=== PATIENT | male | born 1940 | race Hispanic/Latino ===

== ENCOUNTER 2017-03-24 21:04 | Emergency (ER) | payer MEDICARE ==
[~2017-03-24 21:04] MED LIST: ADRENALIN ONE
--- NOTE | 2017-03-24 21:21 | Emergency Department Report ---
ED CPR HPI - General Stated Complaint: CARDIAC ARREST Time Seen by Provider: 03/24/17 21:15 Source: EMS, old records reviewed Mode of arrival: Stretcher Limitations: Altered Mental Status, Physical Limitation - History of Present Illness Initial Comments: 77-year-old male with a past medical history of COPD, hypertension, diabetes, and history of NV presents to the hospital with cardiopulmonary arrest. Patient resides at [facility]. EMS received cough of respiratory distress. Upon their arrival patient had agonal respirations and cyanosis. Unable to obtain a pulse ox in the field. Patient was intubated with 8.0 ET tube. Patient initially had a sinus rhythm with a rightward axis at a rate of 93 per EMS EKG. Possible RVH. No signs of ST elevation NV on EMS EKG. 2 minutes prior to arrival patient became pulseless and presents to the ED apneic , pulseless, and asystole on the monitor. Accu-Chek reported to be in the 200s. No vasoactive IV medication given prior to arrival. Patient presents with [facility] Hospital ID band and gown Previous medical record review. Patient was recently admitted here February 25 and discharged on March 11 for acute encephalopathy secondary to sepsis, MSSA or tracheal aspirate, right lower lobe aspiration pneumonia, acute hypoxic hypercapnic respiratory failure requiring intubation, elevated troponin secondary to sepsis and renal insufficiency, acute renal insufficiency secondary to ATN/sepsis that resolved prior to discharge. Patient had labs drawn March 23 yesterday showing a glucose of 140, sodium 137 , potassium 4.7, CO2 25, chloride 97, BUN 43, calcium 8.7, creatinine 2.1. Worsening renal function compared to most recent discharge lab work As per alf paperwork patient is full CODE STATUS - Related Data Home Medications Medication Instructions Recorded Confirmed Last Taken Duloxetine HCl [Cymbalta] 60 mg PO DAILY 02/26/17 02/26/17 Unknown Fenofibrate [Tricor] 145 mg PO QDAY 02/26/17 02/26/17 Unknown Levothyroxine Sodium 137 mcg PO QAM 02/26/17 02/26/17 Unknown Lisinopril 20 mg PO DAILY 02/26/17 02/26/17 Unknown Pantoprazole [Protonix TAB] 40 mg PO QDAY 02/26/17 02/26/17 Unknown Pregabalin [Lyrica] 300 mg PO BID 02/26/17 02/26/17 Unknown busPIRone [Buspar] 10 mg PO BID 02/26/17 02/26/17 Unknown Previous Rx's Medication Instructions Recorded Last Taken Type Ipratropium/Albuterol Sulfate 1 ampul IH QIDRT #90 ampul.neb 03/10/17 Unknown Rx [DUONEB *Not for PRN Use*] Metoprolol [Lopressor TAB] 50 mg PO BID #60 tablet 03/10/17 Unknown Rx Prednisone [predniSONE 10 mg 10 mg PO .TAPER #1 tab.ds.pk 03/10/17 Unknown Rx (6-Day Pack, 21 Tabs)] amLODIPine [Norvasc] 10 mg PO QDAY #30 tablet 03/10/17 Unknown Rx hydrALAZINE [Apresoline TAB] 25 mg PO Q8HR #30 tablet 03/10/17 Unknown Rx Allergies Allergy/AdvReac Type Severity Reaction Status Date / Time No Known Allergies Allergy Unverified 02/25/17 19:55 ED Review of Systems ROS: Stated complaint: CARDIAC ARREST Other details as noted in HPI Comment: Unobtainable due to pts medical conditions ED Past Medical Hx - Past Medical History Hx Hypertension: Yes Hx CVA: Yes Hx Diabetes: Yes Hx Deep Vein Thrombosis: No Hx COPD: Yes - Surgical History Hx Pacemaker: No Hx Internal Defibrillator: No - Social History Smoking Status: Unknown if ever smoked - Medications Home Medications: Home Medications Medication Instructions Recorded Confirmed Last Taken Type Duloxetine HCl [Cymbalta] 60 mg PO DAILY 02/26/17 02/26/17 Unknown History Fenofibrate [Tricor] 145 mg PO QDAY 02/26/17 02/26/17 Unknown History Levothyroxine Sodium 137 mcg PO QAM 02/26/17 02/26/17 Unknown History Lisinopril 20 mg PO DAILY 02/26/17 02/26/17 Unknown History Pantoprazole [Protonix TAB] 40 mg PO QDAY 02/26/17 02/26/17 Unknown History Pregabalin [Lyrica] 300 mg PO BID 02/26/17 02/26/17 Unknown History busPIRone [Buspar] 10 mg PO BID 02/26/17 02/26/17 Unknown History Ipratropium/Albuterol Sulfate 1 ampul IH QIDRT #90 ampul.neb 03/10/17 Unknown Rx [DUONEB *Not for PRN Use*] Metoprolol [Lopressor TAB] 50 mg PO BID #60 tablet 03/10/17 Unknown Rx Prednisone [predniSONE 10 mg 10 mg PO .TAPER #1 tab.ds.pk 03/10/17 Unknown Rx (6-Day Pack, 21 Tabs)] amLODIPine [Norvasc] 10 mg PO QDAY #30 tablet 03/10/17 Unknown Rx hydrALAZINE [Apresoline TAB] 25 mg PO Q8HR #30 tablet 03/10/17 Unknown Rx ED Physical Exam - Other Other exam information: General: Unresponsive Head exam: Atraumatic, normocephalic Eyes exam: Pupils fixed and dilated ENT: Orally intubated a 0.0 ET tube Neck exam: Normal inspection, full range of motion, no meningismus nontender Respiratory exam: Apneic, equal breath sounds with bagging, no breath sounds over epigastrium Cardiovascular: Pulseless, asystole on the monitor Abdomen: Soft, nondistended Extremity: No deformity Back: Normal Inspection Neurologic: GCS = 3 Psychiatric: Unresponsive Skin: Ecchymosis to the right hip ED Course - Reevaluation(s) Reevaluation #1: 03/24/17 Chest compressions initiated upon patient's arrival with bag with oxygen via ET tube in progress. She rhythm asystole. Patient received 2 rounds of epinephrine IV continue chest compressions. No change in rhythm and patient remained in asystole. Time of 21:10 ED Medical Decision Making - Medical Decision Making Respiratory arrest Patient required intubation Despite intubation patient deteriorated to pulseless arrest Initial rhythm asystole Despite oxygenation through ET tube, several doses of epinephrine, patient remained in asystolic arrest Time of 21:10 - Differential Diagnosis hypoxia, hypercarbia, NV, sepsis, arrhythmia, CVA Critical Care Time: Yes Critical care time in (mins) excluding proc time.: 15 Critical care attestation.: If time is entered above; I have spent that time in minutes in the direct care of this critically ill patient, excluding procedure time. ED Disposition Clinical Impression: Cardiopulmonary arrest Disposition: DC-20 Is pt being admited?: No Condition: Stable Time of Disposition: 21:25
== END 2017-03-24 23:45 ==
LOC: ED 21:04
DX: I46.9 Cardiac arrest, cause unspecified (principal); I10 Essential (primary) hypertension; E11.9 Type 2 diabetes mellitus without complications; J44.9 Chronic obstructive pulmonary disease, unspecified
CPT/HCPCS: 92950; 99285; J0171